=== PATIENT | male | born 1955 | race Caucasian/White ===

== ENCOUNTER 2025-03-16 01:49 | Day surgery (SDC) | payer MEDICARE, SELFPAY ==
[2025-03-06 10:45] VITALS: BMI 31.5
[2025-03-16 08:54] VITALS: BP 157/86; PULSE 80; RESP 18; TEMP 36.5; O2SAT 98
[2025-03-16] MEDS: LACTATED RINGERS 1,000 ML 150 ML IV CONT (09:01)
--- NOTE | 2025-03-16 10:15 | WPDANESEPPF ---
Anes - Initial Pre Proc Eval Procedure: Operation Date: 03/16/25 10:00 Proposed Procedures p Screening Colonoscopy - Victor Manuel Berger MD Date/Time: 03/16/25 10:15 Surgeon: Victor Manuel Berger MD Pre Op Diagnosis: neoplasm screening Pre Op Diagnosis: Encounter for screening for malignant neoplasm of Patient Data Age: 69 Gender: M Height: 1.8 m Weight: 103.3 kg Last Vital Signs Temp 36.5 C 03/16/25 08:54 Pulse 80 03/16/25 08:54 Resp 18 03/16/25 08:54 BP 157/86 H 03/16/25 08:54 Pulse Ox 98 03/16/25 08:54 O2 Del Method Room Air 03/16/25 08:54 Allergies Allergy/AdvReac Type Severity Reaction Status Date / Time lidocaine Allergy Mild Rash Verified 03/16/25 08:53 Penicillins Allergy Mild hives Verified 03/16/25 08:53 Home Medications ?Medication ?Instructions ?Recorded ?Confirmed ?Type simvastatin 20 mg tablet 20 mg PO QPM 03/06/25 03/16/25 History Patient hx anesthesia problems: none Family hx anesthesia problems: none Results Review: All pre-operative results and documents have been reviewed as part of the pre-operative evaluation. [facility] Social History Social History Smoking status: Never smoker Alcohol intake: never Substance use: never Substance use type: does not use Living arrangements: with family Spiritual care concerns: No Anes - Eval Final PreProcedure Day of Procedure 03/16/25 10:15 Patient weight: normal Heart: regular rate and rhythm Lungs: clear to auscultation and normal air movement Airway: Mallampati scale class II Neurological: alert and oriented Last oral intake: >/= 8 hours Emergent: no Anesthetic plan: proceed Anesthesia type and monitoring: general GIVS and standard monitoring Results Review: All pre-operative results and documents have been reviewed as part of the pre-operative evaluation. Informed Consent: The patient's anesthetic plan and its attendant risks and benefits were discussed with the patient/family/POA. Questions were solicited and answers provided to the satisfaction of the patient/family/POA.
--- NOTE | 2025-03-16 10:17 | PM.HPGS ---
History of Present Illness History of Present Illness Consent: Risks, benefits, and alternatives have been discussed and questions answered. Patient agrees to proceed with procedure. Chief complaint: Encounter for screening for malignant neoplasm of Narrative: Jake Jean Baptiste is a 69 year old male with screening colonoscopy, last one about 10 years ago Review of Systems Review of Systems: All systems reviewed & are unremarkable except as noted in HPI and below PMFSH Past Medical History Medical History (Updated 03/16/25 @ 10:18 by Victor Manuel Berger MD) Colon cancer screening Social History Social History Smoking status: Never smoker Alcohol intake: never Substance use: never Substance use type: does not use Living arrangements: with family Spiritual care concerns: No Meds Home Medications and Allergies Home Medications ?Medication ?Instructions ?Recorded ?Confirmed ?Type simvastatin 20 mg tablet 20 mg PO QPM 03/06/25 03/16/25 History Allergies Allergy/AdvReac Type Severity Reaction Status Date / Time lidocaine Allergy Mild Rash Verified 03/16/25 08:53 Penicillins Allergy Mild hives Verified 03/16/25 08:53 Vital Signs Vital Signs - 24 hr 03/16/25 08:54 Temperature 97.7 F Pulse Rate 80 Respiratory Rate 18 Blood Pressure 157/86 H Pulse Oximetry 98 Oxygen Delivery Room Air Exam Const: General: comfortable and no acute distress HENMT: Face/Nose/Sinus: Normal nares present Eyes: General: appearance normal, both eyes and all related structures Neck: Neck: no JVD Resp: Auscultation: clear to auscultation bilaterally Cardio: Rate: regular rate Rhythm: regular rhythm GI: Inspection: non-distended GI Palp: Yes Soft to palpation Skin: General skin exam: normal color Extrem: General: normal to inspection Psych: Mental Status: mental status grossly normal Assessment and Plan Assessment and plan (1) Colon cancer screening: Code(s): Z12.11 - Encounter for screening for malignant neoplasm of colon Status: Acute Assessment and Plan: colonoscopy
--- NOTE | 2025-03-16 10:32 | S_PTH ---
PATIENT: Jake Jean Baptiste LOC: [facility]#:[id number] AGE/SX: 69/M ROOM: RE03/16/[address]: Victor Manuel Berger MD : 1955 BED: DIS: 03/16/2025 SPEC #: [id number] RECD: 03/16/25 11:49 STATUS: BRITTANY REBilly #: [id number] JIM: 03/16/25 10:[address]: Victor Manuel Berger DEPT: [facility] Surgical RECD BY: Herman Kuhn ENTERED: 03/16/25 11:49 SP TYPE: Surgical OTHR DR: Shiva ChangMD Tissues: A - Colon Polypectomy Procedures: Hematoxylin and Eosin Stain Gross and Microscopic Level 4
[2025-03-16 10:36] VITALS: BP 110/72; PULSE 72; RESP 22; O2SAT 96
[2025-03-16 10:46] VITALS: BP 115/71; PULSE 61; RESP 19; O2SAT 100
[2025-03-16 10:56] VITALS: BP 114/73; PULSE 63; RESP 19; O2SAT 100
== END 2025-03-16 11:01 | disposition home or self-care (01) ==
PROVIDERS: PCP Internal Medicine; Referring Provider Internal Medicine; Visit Provider Internal Medicine Gastroenterology
PROC: 0DJD8ZZ Inspection of Lower Intestinal Tract, Via Natural or Artificial Opening Endoscopic (ICD-10-PCS; CPT 45378; principal; 2025-03-16 10:00)
DX: Z12.11 Encounter for screening for malignant neoplasm of colon (principal); D12.3 Benign neoplasm of transverse colon; K57.30 Diverticulosis of large intestine without perforation or abscess without bleeding; K64.8 Other hemorrhoids
CPT/HCPCS: 45380; 88305; J2003; J2704; J7120